=== PATIENT | female | born 2000 | race Hispanic/Latino ===

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

== ENCOUNTER 2022-02-04 17:27 | Emergency (ER) | payer SELFPAY ==
[2022-02-04 18:00] LABS: Pregnancy Test - Urine (BHCG) Negative (Negative); Pregu Control Background? CLEAR/WHITE (CLR/WHITE); Pregu Control Bar Appear? YES (CONTROL BAR); Specific Gravity 1.015 (1.002-1.036)
[2022-02-04] MEDS ORDERED: Ondansetron ODT 4 MG TAB ONE (18:01)
[2022-02-04 18:04] LABS: Bilirubin Negative (Negative); Blood, Urine Negative (Negative); Clarity Slightly Cloudy (Clear); Glucose, Urine (Dipstick) Negative (Negative); Ketone, Urine Negative (Negative); Leukocyte Small (Negative); Nitrite Negative (Negative); Protein, Urine (Dipstick) Negative (Neg-Trace); Urobilinogen 0.2 mg/dL (Less than 2)
[2022-02-04 18:06] LABS: Bacteria/HPF 1+ HPF (None Seen); RBC/HPF 0-3 HPF (0-3); WBC/HPF 0-3 HPF (0-3)
== END 2022-02-04 18:21 | disposition home or self-care (01) ==
LOC: MADERS 17:27
DX: A08.4 Viral intestinal infection, unspecified (principal)
CPT/HCPCS: 81003; 81015; 81025; 99284; Q0162

== ENCOUNTER 2022-12-12 09:16 | Emergency (ER) | payer SELFPAY ==
[2022-12-12 10:06] LABS: Bilirubin Negative (Negative); Blood, Urine Small (Negative); Clarity Cloudy (Clear); Glucose, Urine (Dipstick) Negative (Negative); Ketone, Urine > or equal to 80 mg/dL (Negative); Leukocyte Large (Negative); Nitrite Positive (Negative); Protein, Urine (Dipstick) 30 mg/dL (Neg-Trace)
[2022-12-12 10:14] LABS: Bacteria/HPF 4+ HPF (None Seen); WBC/HPF Greater Than 50 HPF (0-3)
[2022-12-12 10:21] LABS: Pregnancy Test - Urine (BHCG) Negative (Negative); Pregu Control Background? CLEAR/WHITE (CLR/WHITE); Pregu Control Bar Appear? YES (CONTROL BAR)
[2022-12-12] MEDS ORDERED: Ketorolac Tromethamine 30 MG/ML VIAL ONE (10:35)
[2022-12-12] MEDS ORDERED: cefTRIAXone\\ROCEPHIN 1 GM VIAL ONE (10:35)
[2022-12-12 10:41] LABS: #Basophils 0.2 thou/uL (0.0-0.2); #Lymphocytes 0.9 thou/uL (1.20-3.40); #Monocytes 1.5 thou/uL (0.11-0.59); #Neutrophils 12.1 thou/uL (1.40-6.50); %Basophils 1.2 % (0.0-1.0); %Eosinophils 0.1 % (0.0-10.0); %Lymphocytes 6.1 % (28.0-48.0); %Monocytes 10.4 % (0.0-4.0); %Neutrophils 82.2 % (31.0-61.0); Hemoglobin 13.1 g/dL (12.0-16.0); Mean Corpuscular HGB CONC 33.3 g/dL (32.0-36.0); Mean Corpuscular Hemoglobin 28.6 pg (25.0-35.0); Mean Corpuscular Volume 85.8 fl (78.0-98.0); Mean Platelet Volume 6.9 fL (7.4-10.4); Platelet Count 264 10x3/uL (130-400); RBC Distribution Width 12.2 % (11.5-14.5); Red Blood Cell (RBC) Count 4.57 mill/uL (4.00-5.20); White Blood Cell (WBC) Count 14.7 10x3/uL (4.8-10.8)
[2022-12-12 10:53] LABS: ALT (SGPT) 12 U/L (8-55); AST (SGOT) 13 U/L (5-34); Albumin 4.2 g/dL (3.5-5.0); Alkaline Phosphatase 64 U/L (40-100); Anion Gap 17 mmol/L (10-20); BUN (Urea Nitrogen) 7 mg/dL (7.0-18.7); Bilirubin, Total 1.1 mg/dL (0.2-1.2); Calc. Creatinine Clearance 0 mL/min (70-130); Calcium 9.1 mg/dL (7.8-10.44); Carbon Dioxide 20 mmol/L (22-29); Chloride 102 mmol/L (98-107); Estimated GFR 119; Globulin 3.9 g/dL (2.4-3.5); Glucose 90 mg/dL (70-105); Potassium 3.5 mmol/L (3.5-5.1); Protein, Total 8.1 g/dL (6.0-8.3); Sodium 135 mmol/L (136-145)
[2022-12-12] MEDS ORDERED: Sodium Chloride 0.9% 1,000 ML ONE ×2 (11:09→11:10)
== END 2022-12-12 12:11 | disposition home or self-care (01) ==
LOC: MADERS 09:16
DX: N10 Acute pyelonephritis (principal); D72.829 Elevated white blood cell count, unspecified
CPT/HCPCS: 74176; 80053; 81003; 81015; 81025; 85025; 96374; 96375; J0696; J1885; J7050

== ENCOUNTER 2024-05-06 06:52 | Emergency (ER) | payer BC, SELFPAY ==
[2024-05-06] MEDS ORDERED: Ketorolac Tromethamine 10 MG TAB ONE (08:04)
[2024-05-06] MEDS ORDERED: Meclizine HCl 25 MG TAB ONE (08:04)
[2024-05-06] MEDS ORDERED: Ondansetron ODT 4 MG TAB ONE (08:05)
[2024-05-06 08:49] LABS: SARS-CoV-2 E Target Negative; SARS-CoV-2 N2 Target Negative; SARS-CoV-2 NAA Rapid Test Not Detected (NotDetected); SARS-CoV-2 RdRP gene Negative
== END 2024-05-06 08:17 | disposition home or self-care (01) ==
LOC: MADERS 06:52
DX: B34.9 Viral infection, unspecified (principal); R42 Dizziness and giddiness; F17.210 Nicotine dependence, cigarettes, uncomplicated; F17.290 Nicotine dependence, other tobacco product, uncomplicated
CPT/HCPCS: 99284; Q0162; U0002

== ENCOUNTER 2024-07-26 15:21 | Emergency (ER) | payer BC | END 2024-07-26 16:38 | disposition home or self-care (01) | LOC: MADERS 15:21 | DX: S67.191A Crushing injury of left index finger, initial encounter (principal); F17.290 Nicotine dependence, other tobacco product, uncomplicated; W23.0XXA Caught, crushed, jammed, or pinched between moving objects, initial encounter | CPT/HCPCS: 99283 ==